=== PATIENT | female | born 1975 ===

== ENCOUNTER 2020-02-27 09:00 | Day surgery (SDC) | payer OTHER ==
[2020-02-27] MEDS ORDERED: Tylenol #3 PO (16:04)
[2020-02-27] MEDS ORDERED: MONDOXYNE NL100 MG PO (16:04)
== END 2020-02-27 21:45 | disposition home or self-care (01) ==
LOC: CIR.AMB 09:00
PROVIDERS: ATTEND Obstetrics & Gynecology
DX: D25.0 Submucous leiomyoma of uterus (principal); N84.0 Polyp of corpus uteri